=== PATIENT | male | born 1995 | race Caucasian/White ===

== ENCOUNTER 2017-12-13 21:03 | Emergency (ER) | payer OTHER ==
[~2017-12-13] VITALS: Ht 188 cm; Wt 90.7 kg
[2017-12-13 21:05] VITALS: BP 118/75
--- NOTE | 2017-12-13 21:10 | NUR ---
PT. AMBULATED TO ED LOBBY
--- NOTE | 2017-12-13 21:17 | NUR ---
PT. TAKEN TO XR
--- NOTE | 2017-12-13 21:24 | NUR ---
PT. TAKEN BACK TO [facility]
--- NOTE | 2017-12-13 21:50 | NUR ---
TO ER OF2
--- NOTE | 2017-12-13 21:55 | NUR ---
PATIENT IS A 22 Y/O MALE WHO PRESENTS TO THE ED C/O SOB. PT STATES, "I FELT LIKE THERE WAS SOMETHING IN MY THROAT AND I FEEL LIKE IT HURTS MY BREATHING." PT REPORTS 2/10 ACHING THROAT PAIN THAT DOES NOT RADIATE. PT DENIES CP, REPORTS SOB, DENIES N/V/D. LUNG SOUNDS CLEAR BL, O2 SAT 99% ON RA. PT AAOX4, RR EVEN/UNLABORED. PT REPOSITIONED FOR COMFORT, BED IN LOWEST POSITION. ER MD DR. DEUTSCH NOTIFIED. WILL CONTINUE TO MONITOR. Addendum: 12/13/17 at 2205 by [facility] PATIENT IS A 22 Y/O MALE WHO PRESENTS TO THE ED C/O SOB. PT STATES, "I FELT LIKE THERE WAS SOMETHING IN MY THROAT AND I FEEL LIKE IT HURTS MY BREATHING." PT REPORTS 2/10 ACHING THROAT PAIN THAT DOES NOT RADIATE. PT DENIES CP, REPORTS SOB, REPORTS NAUSEA DENIES VOMITING/DIARRHEA. LUNG SOUNDS CLEAR BL, O2 SAT 99% ON RA. PT AAOX4, RR EVEN/UNLABORED. PT REPOSITIONED FOR COMFORT, BED IN LOWEST POSITION. ER MD DR. DEUTSCH NOTIFIED. WILL CONTINUE TO MONITOR.
[2017-12-13 22:46] VITALS: BP 121/80
--- NOTE | 2017-12-13 22:46 | NUR ---
Patient discharged with v/s stable. Written and verbal after care instructions given and explained. Patient verbalized understanding. Ambulatory with steady gait. All questions addressed prior to discharge. Advised to follow up with PMD.
== END 2017-12-13 22:46 | disposition home or self-care (01) ==
LOC: MED 21:03
DX: F12.90 Cannabis use, unspecified, uncomplicated (principal)
CPT/HCPCS: 71045; 99283

== ENCOUNTER 2017-12-27 14:20 | Emergency (ER) | payer OTHER ==
[~2017-12-27] VITALS: Ht 190.5 cm; Wt 108.0 kg
[2017-12-27 14:34] VITALS: BP 159/71
--- NOTE | 2017-12-27 15:18 | NUR ---
PT WAS PUT ON BED12 CO RASH ON LEFT GROIN AREA, NO FURTHER CO. PT A/OX3, SPEAKS FULL SENTENCES, FOLLOWS COMMAND, DENIES SALAZAR AND DIZZINESS. NO SOB. LUNG SOUND CLEAR, BREATHING EVEN, PT AMBULATES INDEDEPENDENTLY, MOVES ALL EXTREMITIES.
--- NOTE | 2017-12-27 16:12 | NUR ---
EXAMINED PT THEN DC'D HOME WITH RX. Patient discharged with v/s stable. Written and verbal after care instructions given and explained. Patient alert, oriented and verbalized understanding of instructions. Ambulatory with steady gait. All questions addressed prior to discharge. ID band removed. Patient advised to follow up with PMD. Rx of LOTRIMIN ULTRA AND IBUPROFEN given. Patient educated on indication of medication including possible reaction and side effects. Opportunity to ask questions provided and answered.
[2017-12-27 16:13] VITALS: BP 134/76
== END 2017-12-27 16:12 | disposition home or self-care (01) ==
LOC: MED 14:20
DX: R21 Rash and other nonspecific skin eruption (principal)
CPT/HCPCS: 99282

== ENCOUNTER 2019-10-25 19:28 | Emergency (ER) | payer OTHER ==
[~2019-10-25] VITALS: Ht 185.4 cm; Wt 99.8 kg
[2019-10-25 19:40] VITALS: BP 119/61
--- NOTE | 2019-10-25 20:12 | NUR ---
PT ARRIVED TO ED C/O LOWER BACK PAIN X 3 DAYS. RATES PAIN 9/10 AND DESCRIBES IT SHOOTING. DENIES ANY TRUAMA OR INJURY OR RECENT FALLS. PT STATES LAST YEAR HE INJURY HIS BACK AT WORK AND FILED FOR WORKERS COM. NO OBVIOUS DEFORMITY NOTED. VSS. CMS INTACT. NKA. DENIES ANY PMH.
--- NOTE | 2019-10-25 20:19 | NUR ---
LOR VAZ AT BEDSIDE.
[2019-10-25] MEDS ORDERED: ONDANSETRON 4 MG ODT PO ONE (20:20)
[2019-10-25] MEDS ORDERED: KETOROLAC 60 MG/2 ML VIAL IM ONE (20:20)
[2019-10-25] MEDS ORDERED: HYDROcodone/APAP 7.5/325 MG 1 TAB PO ONE (20:20)
[2019-10-25] MEDS ORDERED: IBUPROFEN 800 MG TAB PO ONE (21:00)
[2019-10-25 21:15] VITALS: BP 119/61
--- NOTE | 2019-10-25 21:15 | NUR ---
Patient discharged with v/s stable. Written and verbal after care instructions given and explained. Patient alert, oriented and verbalized understanding of instructions. Ambulatory with steady gait. All questions addressed prior to discharge. ID band removed. Patient advised to follow up with PMD. Rx of MEDROL; FLEXERIL; IBUPROFEN given. Patient educated on indication of medication including possible reaction and side effects. Opportunity to ask questions provided and answered.
== END 2019-10-25 21:15 | disposition home or self-care (01) ==
LOC: MED 19:28
DX: S39.012A Strain of muscle, fascia and tendon of lower back, initial encounter (principal); M54.16 Radiculopathy, lumbar region; F17.210 Nicotine dependence, cigarettes, uncomplicated; X50.0XXA Overexertion from strenuous movement or load, initial encounter; Y92.89 Other specified places as the place of occurrence of the external cause; Y93.89 Activity, other specified; Y99.8 Other external cause status
CPT/HCPCS: 99283; J1885; Q0162